=== PATIENT | male | born 1980 | race Hispanic/Latino ===

== ENCOUNTER 2024-04-05 07:20 | Emergency (ER) | payer SELFPAY ==
[2024-04-05] MEDS ORDERED: methylPREDNISolone Acetate 40 mg/ml Vial ONE (08:25)
== END 2024-04-05 08:35 | disposition home or self-care (01) ==
LOC: BURERS 07:20
DX: J06.9 Acute upper respiratory infection, unspecified (principal); J03.90 Acute tonsillitis, unspecified; B97.89 Other viral agents as the cause of diseases classified elsewhere
CPT/HCPCS: 71046; 87081; 87428; 87430; 96372; J1010